=== PATIENT | male | born 1960 | race Caucasian/White ===

== ENCOUNTER 2016-06-01 10:02 | Emergency (ER) | payer MEDICARE ==
--- NOTE | 2016-06-01 10:40 | ED ---
General Adult HPI - General Chief complaint: Seizure Stated complaint: Seizure Time Seen by Provider: 06/01/16 10:05 Source: patient, RN notes reviewed Mode of arrival: wheelchair Limitations: no limitations - History of Present Illness Initial comments: 56-year-old male presents emergency Department with past medical history significant for a brain tumor in 2006 which she had surgery. Since that point in time he's had left-sided weakness and history of seizures. Patient has been on Keppra and Lamictal for a while and his physician just started him on a new medication. Patient states she's been taking it as prescribed however he recently a few weeks ago decrease the dosage because he thought he was running out of them. Today he was doing some exercising confronted the mirror at 5:30 this morning when he started having some twitching of his left arm which lasted approximately 1 minute. Patient states her to or after the twitching he had no symptoms. He denies any headache he denies any numbness C denies any new weakness. Patient denies any recent fever chills or cough. Patient denies any injury or trauma. Patient denies any chest pain palpitations difficulty breathing or shortness of breath. Patient denies any abdominal pain. Patient denies any recent nausea vomiting diarrhea. - Related Data Home Medications Medication Instructions Recorded Confirmed Fycompa 8 mg PO HS 06/01/16 06/01/16 lamoTRIgine [LaMICtal] 150 mg PO BID 06/01/16 06/01/16 levETIRAcetam [Keppra] 1,000 mg PO Q12HR 06/01/16 06/01/16 Previous Rx's Medication Instructions Recorded lamoTRIgine [LaMICtal] 200 mg PO BID #60 tab 01/05/16 Allergies Allergy/AdvReac Type Severity Reaction Status Date / Time No Known Allergies Allergy Verified 06/01/16 10:22 Review of Systems ROS Statement: Those systems with pertinent positive or pertinent negative responses have been documented in the HPI. ROS Other: All systems not noted in ROS Statement are negative. Past Medical History Past Medical History: Cancer, Chest Pain / Angina, Deep Vein Thrombosis (DVT), Hyperlipidemia, Hypertension, Memory Impairment, Pulmonary Embolus (PE), Seizure Disorder, Skin Disorder Additional Past Medical History / Comment(s): brain tumor, oligodendroglioma History of Any Multi-Drug Resistant Organisms: None Reported Additional Past Surgical History / Comment(s): brain sx for tumor removal-2014, lt hand sx, isabela filter, colonoscopy Past Anesthesia/Blood Transfusion Reactions: No Reported Reaction Additional Past Anesthesia/Blood Transfusion Reaction / Comment(s): OCC VERTIGO Past Psychological History: No Psychological Hx Reported Additional Psychological History / Comment(s): PT LIVES ALONE IN OWN HOME GETS AROUND WITH USE OF CANE.STATED GETS NO OUTSIDE SERVICES. PT IS ON DISABILTY USED TO WORK IN CONSTRUCTION. Smoking Status: Former smoker Past Alcohol Use History: Rare Additional Past Alcohol Use History / Comment(s): SMOKED FOR ABOUT 1 YEAR QUIT 31 YEARS AGO Past Drug Use History: None Reported - Past Family History Mother Family Medical History: Myocardial Infarction ([place]) Father Additional Family Medical History / Comment(s): HEART PROBLEMS NOT SURE WHAT Brother(s) Family Medical History: Cancer Additional Family Medical History / Comment(s): BRAIN TUMOR. General Exam - General Exam Comments Initial Comments: GENERAL: Patient is well-developed and well-nourished. Patient is nontoxic and well- hydrated and is in no acute distress. ENT: Neck is soft and supple. No significant lymphadenopathy is noted. Oropharynx is clear. Moist mucous membranes. Neck has full range of motion without eliciting any pain. EYES: The sclera were anicteric and conjunctiva were pink and moist. Extraocular movements were intact and pupils were equal round and reactive to light. Eyelids were unremarkable. PULMONARY: Unlabored respirations. Good breath sounds bilaterally. No audible rales rhonchi or wheezing was noted. CARDIOVASCULAR: There is a regular rate and rhythm without any murmurs gallops or rubs. ABDOMEN: Soft and nontender with normal bowel sounds. No palpable organomegaly was noted. There is no palpable pulsatile mass. SKIN: Skin is clear with no lesions or rashes and otherwise unremarkable. NEUROLOGIC: Patient is alert and oriented x3. Cranial nerves II through XII are grossly intact. Patient has weakness in the left arm and left leg which he states is no different than his baseline. Normal speech, volume and content. Symmetrical smile. MUSCULOSKELETAL: Normal extremities with adequate strength and full range of motion. No lower extremity swelling or edema. No calf tenderness. LYMPHATICS: No significant lymphadenopathy is noted PSYCHIATRIC: Normal psychiatric evaluation. Normal interpersonal interactions appears functionally intact in deals appropriately with others. No signs of depression. No signs of anxiety. Limitations: no limitations Course Vital Signs 06/01/16 06/01/16 06/01/16 10:04 11:00 11:08 Temperature 96.8 F L 97.9 F Pulse Rate 82 71 70 Respiratory 16 16 20 Rate Blood Pressure 208/97 158/78 172/85 O2 Sat by Pulse 98 99 99 Oximetry Medical Decision Making - Medical Decision Making I went back into the room to reevaluate the patient patient stated he was completely asymptomatic at this time. - Lab Data Result diagrams: 06/01/16 10:55 06/01/16 10:55 Lab Results 06/01/16 06/01/16 Range/Units 10:55 10:55 WBC 4.0 (3.8-10.6) k/uL RBC 4.74 (4.30-5.90) m/uL Hgb 15.4 (13.0-17.5) gm/dL Hct 45.6 (39.0-53.0) % MCV 96.2 (80.0-100.0) fL MCH 32.5 (25.0-35.0) pg MCHC 33.8 (31.0-37.0) g/dL RDW 13.1 (11.5-15.5) % Plt Count 139 L (150-450) k/uL Neutrophils % 70 % Lymphocytes % 17 % Monocytes % 5 % Eosinophils % 4 % Basophils % 1 % Neutrophils # 2.8 (1.3-7.7) k/uL Lymphocytes # 0.7 L (1.0-4.8) k/uL Monocytes # 0.2 (0-1.0) k/uL Eosinophils # 0.2 (0-0.7) k/uL Basophils # 0.0 (0-0.2) k/uL Sodium 144 (137-145) mmol/L Potassium 4.3 (3.5-5.1) mmol/L Chloride 107 (98-107) mmol/L Carbon Dioxide 27 (22-30) mmol/L Anion Gap 10 mmol/L BUN 19 (9-20) mg/dL Creatinine 0.92 (0.66-1.25) mg/dL Est GFR (MDRD) Af Amer >60 (>60 ml/min/1.73 sqM) Est GFR (MDRD) Non-Af >60 (>60 ml/min/1.73 sqM) Glucose 93 (74-99) mg/dL Calcium 9.6 (8.4-10.2) mg/dL Total Bilirubin 0.5 (0.2-1.3) mg/dL AST 32 (17-59) U/L ALT 39 (21-72) U/L Alkaline Phosphatase 46 (38-126) U/L Total Protein 7.1 (6.3-8.2) g/dL Albumin 4.4 (3.5-5.0) g/dL Disposition Clinical Impression: Focal seizure Disposition: HOME SELF-CARE Condition: Good Instructions: Recurrent Seizures in Adults (ED) Additional Instructions: Patient needs to take meds as prescribed. Patient is to follow-up with a neurologist. Referrals: Wili Villarreal DO [Primary Care Provider] - 1-2 days Time of Disposition: 12:01
[2016-06-01 11:02] LABS: Basophils % (A) 1 %; CH 33.1; CHCM 34.6; Eosinophils # (A) 0.2 k/uL (0-0.7); Eosinophils % (A) 4 %; HCT 45.6 % (39.0-53.0); HDW 3.04; HGB 15.4 gm/dL (13.0-17.5); Luc # (Auto) 0.11; Luc % (Auto) 3; Lymphocytes # (A) 0.7 k/uL (1.0-4.8); Lymphocytes % (A) 17 %; MCH 32.5 pg (25.0-35.0); MCHC 33.8 g/dL (31.0-37.0); MCV 96.2 fL (80.0-100.0); Mean Platelet Volume 8.4; Monocytes # (A) 0.2 k/uL (0-1.0); Monocytes % (A) 5 %; Neutrophils # (A) 2.8 k/uL (1.3-7.7); Neutrophils % (A) 70 %; RBC 4.74 m/uL (4.30-5.90); RDW 13.1 % (11.5-15.5); WBC (Perox) 4.19
[2016-06-01 11:14] LABS: ALT 39 U/L (21-72); AST 32 U/L (17-59); Alkaline Phosphatase 46 U/L (38-126); Anion Gap 10 mmol/L; Blood Urea Nitrogen 19 mg/dL (9-20); Calcium 9.6 mg/dL (8.4-10.2); Carbon Dioxide 27 mmol/L (22-30); Chloride 107 mmol/L (98-107); Glucose 93 mg/dL (74-99); Non-African American GFR(MDRD) >60 (>60 ml/min/1.73 sqM); Potassium 4.3 mmol/L (3.5-5.1); Sodium 144 mmol/L (137-145); Total Bilirubin 0.5 mg/dL (0.2-1.3); Total Protein 7.1 g/dL (6.3-8.2)
[2016-06-01 11:23] VITALS: PULSE 70
[2016-06-01 12:16] VITALS: BP 166/80; RESP 16; TEMP 97.1
[2016-06-02 07:29] LABS: Lamotrigine (Lamictal) 9.4 ug/mL (2.0-15.0)
[2016-06-02 08:15] LABS: Levetiracetam (Keppra) 26.6 ug/mL (3.0-60.0)
== END 2016-06-01 12:26 | disposition home or self-care (01) ==
LOC: EC 10:02
DX: G40.109 Localization-related (focal) (partial) symptomatic epilepsy and epileptic syndromes with simple partial seizures, not intractable, without status epilepticus (principal); Z86.011 Personal history of benign neoplasm of the brain; Z87.891 Personal history of nicotine dependence; Z79.899 Other long term (current) drug therapy
CPT/HCPCS: 36415; 80053; 80175; 80177; 85025; 99284

== ENCOUNTER 2016-06-28 10:32 | Emergency (ER) | payer MEDICARE ==
[2016-06-28] MEDS ORDERED: SODIUM CHLORIDE 0.9% 1,000 ML IV ONE (10:41)
[2016-06-28 10:49] VITALS: RESP 18
[2016-06-28 11:46] LABS: Basophils % (A) 0 %; CH 33.4; CHCM 35.9; Eosinophils # (A) 0.2 k/uL (0-0.7); Eosinophils % (A) 3 %; HCT 47.1 % (39.0-53.0); HDW 3.15; HGB 16.7 gm/dL (13.0-17.5); Luc # (Auto) 0.15; Luc % (Auto) 3; Lymphocytes % (A) 18 %; MCH 33.2 pg (25.0-35.0); MCHC 35.5 g/dL (31.0-37.0); MCV 93.5 fL (80.0-100.0); Mean Platelet Volume 7.2; Monocytes # (A) 0.4 k/uL (0-1.0); Monocytes % (A) 7 %; Neutrophils # (A) 3.9 k/uL (1.3-7.7); Neutrophils % (A) 69 %; RBC 5.04 m/uL (4.30-5.90); RDW 12.9 % (11.5-15.5); WBC 5.6 k/uL (3.8-10.6); WBC (Perox) 5.76
[2016-06-28 12:02] LABS: ALT 37 U/L (21-72); AST 44 U/L (17-59); Alkaline Phosphatase 60 U/L (38-126); Anion Gap 12 mmol/L; Blood Urea Nitrogen 23 mg/dL (9-20); Calcium 9.6 mg/dL (8.4-10.2); Carbon Dioxide 29 mmol/L (22-30); Chloride 102 mmol/L (98-107); Glucose 98 mg/dL (74-99); Magnesium 2.1 mg/dL (1.6-2.3); Non-African American GFR(MDRD) >60 (>60 ml/min/1.73 sqM); Sodium 143 mmol/L (137-145); Total Bilirubin 0.7 mg/dL (0.2-1.3); Total Protein 7.7 g/dL (6.3-8.2)
[2016-06-28 12:08] LABS: Creatine Kinase 347 U/L (55-170)
--- NOTE | 2016-06-28 12:15 | CT ---
EXAMINATION TYPE: CT brain wo con DATE OF EXAM: 06/28/2016 11:51 AM COMPARISON: 01/01/2016 HISTORY: 56-year-old male complains of headache, dizziness, and fall with blow to head today. The pat ient has history of oligodendroglioma. TECHNIQUE: Examination was done in axial plane without intravenous contrast. Coronal and sagittal r econstructions performed. CT DLP: 1106 mGycm Automated exposure control for dose reduction was used. FINDINGS: Redemonstrated postsurgical changes with right-sided craniectomy with overlying metallic flap. Underl chai small resection cavity extensive white matter hypodensities throughout the right frontal lobe re latively similar to prior exam with associated calcifications. However, some of the calcifications an teriorly near the midline, axial image 34 appear to be increased from prior exam. No evidence for acute intracranial hemorrhage. No hydrocephalus, midline shift, or herniation. No ef facement of basal subarachnoid cisterns. Pearson-white matter differentiation is maintained. Paranasal sinuses and mastoid air cells well pneumatized. IMPRESSION: 1. Right-sided craniotomy with underlying right frontal lobe white matter hypodensities, calcificatio ns, and small resection cavity; overall findings are relatively similar to 01/01/2016 though there ar e slightly increasing anterior calcifications. Continued follow-up as indicated for patient's known g lioma. 2. No acute intracranial abnormality seen.
--- NOTE | 2016-06-28 12:16 | ED ---
Dizziness HPI - General Chief Complaint: Dizziness Stated Complaint: Weakness Time Seen by Provider: 06/28/16 10:32 Source: patient, EMS, RN notes reviewed Mode of arrival: EMS Limitations: no limitations - History of Present Illness Initial Comments: This is a 56-year-old male with a history of a CVA with left residual weakness who states he was at a local fast food restaurant this morning when he try to get up he felt lightheaded dizzy and fell. He did not actually lose consciousness. He does state that he felt weak lightheaded he denies any chest pain or palpitations no new weakness to his left side he's had no recent fevers chills nausea vomiting sweats or other symptoms. He currently denies any pain. He was brought here by EMS for evaluation. MD Complaint: dizziness, lightheadedness - Related Data Home Medications Medication Instructions Recorded Confirmed Fycompa 6 mg PO HS 06/01/16 06/28/16 levETIRAcetam [Keppra] 1,000 mg PO Q12HR 06/01/16 06/28/16 Atorvastatin [Lipitor] 80 mg PO DAILY 06/28/16 06/28/16 Cholecalciferol [Vitamin D3] 1,000 unit PO DAILY 06/28/16 06/28/16 Ubidecarenone [Co Q-10] 100 mg PO DAILY 06/28/16 06/28/16 lamoTRIgine [Lamotrigine] 200 mg PO BID 06/28/16 06/28/16 Allergies Allergy/AdvReac Type Severity Reaction Status Date / Time No Known Allergies Allergy Verified 06/16/16 10:05 Review of Systems ROS Statement: Those systems with pertinent positive or pertinent negative responses have been documented in the HPI. ROS Other: All systems not noted in ROS Statement are negative. Past Medical History Past Medical History: Cancer, Chest Pain / Angina, Deep Vein Thrombosis (DVT), Hyperlipidemia, Hypertension, Memory Impairment, Pulmonary Embolus (PE), Seizure Disorder, Skin Disorder Additional Past Medical History / Comment(s): brain tumor, oligodendroglioma History of Any Multi-Drug Resistant Organisms: None Reported Additional Past Surgical History / Comment(s): brain sx for tumor removal-2014, lt hand sx, isabela filter, colonoscopy Past Anesthesia/Blood Transfusion Reactions: No Reported Reaction Additional Past Anesthesia/Blood Transfusion Reaction / Comment(s): OCC VERTIGO Past Psychological History: No Psychological Hx Reported Additional Psychological History / Comment(s): PT LIVES ALONE IN OWN HOME GETS AROUND WITH USE OF CANE.STATED GETS NO OUTSIDE SERVICES. PT IS ON DISABILTY USED TO WORK IN CONSTRUCTION. Smoking Status: Former smoker Past Alcohol Use History: Rare Additional Past Alcohol Use History / Comment(s): SMOKED FOR ABOUT 1 YEAR QUIT 31 YEARS AGO Past Drug Use History: None Reported - Past Family History Mother Family Medical History: Myocardial Infarction ([place]) Father Additional Family Medical History / Comment(s): HEART PROBLEMS NOT SURE WHAT Brother(s) Family Medical History: Cancer Additional Family Medical History / Comment(s): BRAIN TUMOR. General Exam - General Exam Comments Initial Comments: This is a well-developed well-nourished awake oriented history male Limitations: no limitations General appearance: alert, in no apparent distress Head exam: Present: atraumatic, normocephalic, normal inspection Eye exam: Present: normal appearance, PERRL, EOMI. Absent: scleral icterus, conjunctival injection, periorbital swelling ENT exam: Present: normal exam, mucous membranes moist Neck exam: Present: normal inspection. Absent: tenderness, meningismus, lymphadenopathy Respiratory exam: Present: normal lung sounds bilaterally. Absent: respiratory distress, wheezes, rales, rhonchi, stridor Cardiovascular Exam: Present: regular rate, normal rhythm, normal heart sounds. Absent: systolic murmur, diastolic murmur, rubs, gallop, clicks GI/Abdominal exam: Present: soft, normal bowel sounds. Absent: distended, tenderness, guarding, rebound, rigid Extremities exam: Present: normal inspection, normal capillary refill, other ( Left sided hemiparesis). Absent: full ROM, tenderness, pedal edema, joint swelling, calf tenderness Back exam: Present: normal inspection Neurological exam: Present: alert, oriented X3, CN II-XII intact, motor sensory deficit (Stated above this is not new per the patient) Psychiatric exam: Present: normal affect, normal mood Skin exam: Present: warm, dry, intact, normal color. 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[employer] ] Respiratory 18 Rate Blood Pressure 166/85 Blood Pressure 144/79 181/77 [Right Arm] O2 Sat by Pulse 98 Oximetry 06/28/16 06/28/16 06/28/16 11:28 12:39 14:10 Temperature 97.1 F L 97 F L Pulse Rate 63 61 Pulse Rate [ 72 [employer]ruiter Account Manager ] Respiratory 18 18 Rate Blood Pressure 153/79 158/84 Blood Pressure 171/78 [Right Arm] O2 Sat by Pulse 100 99 Oximetry EKG Findings - EKG Results: EKG: interpreted by ERMD, sinus rhythm, normal axis, normal QRS, normal ST/T, no acute changes (Sinus rhythm rate 65 NV interval 164 QRS duration 100 QT/QTC of 434/[address]-T wave changes.) Medical Decision Making - Medical Decision Making The patient showing much improved at this time I did have a long discussion with him and his brother who was present patient does demonstrate hematuria he does have a history kidney stones in the past. He has been on Coumadin in the past but he was taken off about a month ago. He currently is asymptomatic I did go over a differential diagnosis with him about what the potential of hematuria could be he will follow-up with his family doctor for reevaluation of this. - Lab Data Result diagrams: 06/28/16 11:35 06/28/16 11:35 Lab Results 06/28/16 06/28/16 06/28/16 Range/Units 11:35 11:35 11:35 WBC 5.6 (3.8-10.6) k/uL RBC 5.04 (4.30-5.90) m/uL Hgb 16.7 (13.0-17.5) gm/dL Hct 47.1 (39.0-53.0) % MCV 93.5 (80.0-100.0) fL MCH 33.2 (25.0-35.0) pg MCHC 35.5 (31.0-37.0) g/dL RDW 12.9 (11.5-15.5) % Plt Count 153 (150-450) k/uL Neutrophils % 69 % Lymphocytes % 18 % Monocytes % 7 % Eosinophils % 3 % Basophils % 0 % Neutrophils # 3.9 (1.3-7.7) k/uL Lymphocytes # 1.0 (1.0-4.8) k/uL Monocytes # 0.4 (0-1.0) k/uL Eosinophils # 0.2 (0-0.7) k/uL Basophils # 0.0 (0-0.2) k/uL Sodium 143 (137-145) mmol/L Potassium 4.0 (3.5-5.1) mmol/L Chloride 102 (98-107) mmol/L Carbon Dioxide 29 (22-30) mmol/L Anion Gap 12 mmol/L BUN 23 H (9-20) mg/dL Creatinine 1.04 (0.66-1.25) mg/dL Est GFR (MDRD) Af Amer >60 (>60 ml/min/1.73 sqM) Est GFR (MDRD) Non-Af >60 (>60 ml/min/1.73 sqM) Glucose 98 (74-99) mg/dL Calcium 9.6 (8.4-10.2) mg/dL Magnesium 2.1 (1.6-2.3) mg/dL Total Bilirubin 0.7 (0.2-1.3) mg/dL AST 44 (17-59) U/L ALT 37 (21-72) U/L Alkaline Phosphatase 60 (38-126) U/L Total Creatine Kinase 347 H (55-170) U/L CK-MB (CK-2) 3.5 H* (0.0-2.4) ng/mL CK-MB (CK-2) Rel Index 1.0 Troponin I <0.012 (0.000-0.034) ng/mL Total Protein 7.7 (6.3-8.2) g/dL Albumin 4.6 (3.5-5.0) g/dL Urine Color Urine Appearance (Clear) Urine pH (5.0-8.0) Ur Specific Ola (1.001-1.035) Urine Protein (Negative) Urine Glucose (UA) (Negative) Urine Ketones (Negative) Urine Blood (Negative) Urine Nitrite (Negative) Urine Bilirubin (Negative) Urine Urobilinogen (<2.0) mg/dL Ur Leukocyte Esterase (Negative) Urine RBC (0-5) /hpf Urine WBC (0-5) /hpf Hyaline Casts (0-2) /lpf Urine Mucus (None) /hpf 06/28/16 Range/Units 12:13 WBC (3.8-10.6) k/uL RBC (4.30-5.90) m/uL Hgb (13.0-17.5) gm/dL Hct (39.0-53.0) % MCV (80.0-100.0) fL MCH (25.0-35.0) pg MCHC (31.0-37.0) g/dL RDW (11.5-15.5) % Plt Count (150-450) k/uL Neutrophils % % Lymphocytes % % Monocytes % % Eosinophils % % Basophils % % Neutrophils # (1.3-7.7) k/uL Lymphocytes # (1.0-4.8) k/uL Monocytes # (0-1.0) k/uL Eosinophils # (0-0.7) k/uL Basophils # (0-0.2) k/uL Sodium (137-145) mmol/L Potassium (3.5-5.1) mmol/L Chloride (98-107) mmol/L Carbon Dioxide (22-30) mmol/L Anion Gap mmol/L BUN (9-20) mg/dL Creatinine (0.66-1.25) mg/dL Est GFR (MDRD) Af Amer (>60 ml/min/1.73 sqM) Est GFR (MDRD) Non-Af (>60 ml/min/1.73 sqM) Glucose (74-99) mg/dL Calcium (8.4-10.2) mg/dL Magnesium (1.6-2.3) mg/dL Total Bilirubin (0.2-1.3) mg/dL AST (17-59) U/L ALT (21-72) U/L Alkaline Phosphatase (38-126) U/L Total Creatine Kinase (55-170) U/L CK-MB (CK-2) (0.0-2.4) ng/mL CK-MB (CK-2) Rel Index Troponin I (0.000-0.034) ng/mL Total Protein (6.3-8.2) g/dL Albumin (3.5-5.0) g/dL Urine Color Yellow Urine Appearance Clear (Clear) Urine pH 6.0 (5.0-8.0) Ur Specific Ola 1.021 (1.001-1.035) Urine Protein Trace H (Negative) Urine Glucose (UA) Negative (Negative) Urine Ketones Negative (Negative) Urine Blood Moderate H (Negative) Urine Nitrite Negative (Negative) Urine Bilirubin Negative (Negative) Urine Urobilinogen <2.0 (<2.0) mg/dL Ur Leukocyte Esterase Negative (Negative) Urine RBC >182 H (0-5) /hpf Urine WBC 2 (0-5) /hpf Hyaline Casts 1 (0-2) /lpf Urine Mucus Occasional H (None) /hpf - Radiology Data Radiology results: report reviewed (I did review the imaging and reports no acute findings.), image reviewed Disposition Clinical Impression: Fall, Orthostatic hypotension, Dehydration, Hematuria Disposition: HOME SELF-CARE Condition: Good Instructions: Dizziness (ED), Dehydration (ED), Hematuria (ED)
[2016-06-28 12:22] LABS: Troponin I <0.012 ng/mL (0.000-0.034)
[2016-06-28 12:23] LABS: Appearance,Urine Clear (Clear); Bilirubin,Urine Negative (Negative); Glucose,Urine (UA) Negative (Negative); Ketones,Urine Negative (Negative); Leukocyte Esterase,Urine Negative (Negative); Mucus,Urine Occasional /hpf; Nitrite,Urine Negative (Negative); Particle Count 3583; Protein,Urine Trace (Negative); RBC,Urine >182 /hpf (0-5); Specific Gravity,Urine 1.021 (1.001-1.035); UA Billing (MACRO vs. MICRO) MICRO; Urobilinogen,Urine <2.0 mg/dL (<2.0); WBC,Urine 2 /hpf (0-5)
[2016-06-28 12:30] LABS: Creatine Kinase MB 3.5 ng/mL (0.0-2.4)
--- NOTE | 2016-06-28 14:13 | XR ---
EXAMINATION TYPE: XR chest 2V DATE OF EXAM: 06/28/2016 2:06 PM COMPARISON: 10/18/2014 HISTORY: 56-year-old male with cough TECHNIQUE: AP and lateral views FINDINGS: The cardiomediastinal silhouette, aorta, and pulmonary vasculature are within normal limits. Stable m ild interstitial prominence, likely chronic changes, without consolidation, pneumothorax, or pleural effusion. IMPRESSION: No acute cardiopulmonary process.
--- NOTE | 2016-06-28 14:14 | XR ---
EXAMINATION TYPE: XR abdomen 1V DATE OF EXAM: 06/28/2016 2:06 PM CLINICAL DATA: 56-year-old male with pain after fall today, [facility] COMPARISON: 08/26/2010 FINDINGS: Lung bases are clear. An IVC filter is present. No evidence for free intraperitoneal air. No dilated small bowel or air-fluid levels. Scattered air and stool seen throughout the colon extendi ng distally into the rectum. Mild stool burden. No suspicious calcifications identified. IMPRESSION: No evidence of bowel obstruction or free intraperitoneal air.
[2016-06-28 15:36] VITALS: BP 158/92; PULSE 59; TEMP 96.9
== END 2016-06-28 15:32 | disposition home or self-care (01) ==
LOC: EC 10:32
DX: I95.1 Orthostatic hypotension (principal); E86.0 Dehydration; R31.9 Hematuria, unspecified; I69.952 Hemiplegia and hemiparesis following unspecified cerebrovascular disease affecting left dominant side; E78.5 Hyperlipidemia, unspecified; I10 Essential (primary) hypertension; G40.909 Epilepsy, unspecified, not intractable, without status epilepticus; Z85.841 Personal history of malignant neoplasm of brain; Z86.711 Personal history of pulmonary embolism; Z86.718 Personal history of other venous thrombosis and embolism; Z79.899 Other long term (current) drug therapy; Z87.891 Personal history of nicotine dependence; W18.30XA Fall on same level, unspecified, initial encounter; Y92.511 Restaurant or cafe as the place of occurrence of the external cause
CPT/HCPCS: 36415; 70450; 71020; 74000; 80053; 81001; 82550; 82553; 83735; 84484; 85025; 93005; 96360; 96361; 99285

== ENCOUNTER → 2016-08-12 | Outpatient (CLI) | payer MEDICARE ==
[2016-08-12 16:44] LABS: ALT 34 U/L (21-72); AST 35 U/L (17-59); Alkaline Phosphatase 47 U/L (38-126); Anion Gap 13 mmol/L; Blood Urea Nitrogen 32 mg/dL (9-20); Calcium 9.9 mg/dL (8.4-10.2); Carbon Dioxide 30 mmol/L (22-30); Chloride 100 mmol/L (98-107); Glucose 106 mg/dL (74-99); Non-African American GFR(MDRD) >60 (>60 ml/min/1.73 sqM); Potassium 3.8 mmol/L (3.5-5.1); Sodium 143 mmol/L (137-145); Total Bilirubin 1.2 mg/dL (0.2-1.3); Total Protein 7.6 g/dL (6.3-8.2)
--- NOTE | 2016-08-12 17:43 | MR ---
EXAMINATION TYPE: MR brain wo/w con DATE OF EXAM: 08/12/2016 COMPARISON: NONE HISTORY: Brain Ca / Progressive Weakness CONTRAST: Standard multiplanar, multisequence MRI departmental protocol utilizing 17 mL intravenous MultiHance gadolinium contrast. FINDINGS: There is a right frontoparietal craniotomy defect. There is a large area of tran and white matter edema in the right frontal and parietal lobe that measures approximately 10 x 5 cm. There is a 3.5 x 3 cm area of mixed signal adjacent to the falx in the right parietal lobe. Some of this is dec reased signal related to calcification and hemosiderin there is a 3 cm area of irregular pathologic p atchy nodular enhancement at the anterior aspect of the parietal lobe mass consistent with residual t umor. There is an 18 mm area of fluid signal at the posterior aspect of the mass. There is no significant midline shift. I see no significant effacement of the right lateral ventricle . The patchy nodular enhancement extends to the right lateral ventricle. IMPRESSION: Postsurgical changes with a large area of cerebral edema in the right frontal parietal lobe and evide nce of 3 cm residual tumor enhancement. No significant mass effect. I do not see an increase compared to the old CT scan of 06/28/2016. I do not have a previous MR scan to compare.
== END | disposition home or self-care (01) ==
LOC: RADMRIMAIN 15:48
PROVIDERS: ATTEND Internal Medicine Hematology & Oncology
DX: G93.6 Cerebral edema (principal); C71.9 Malignant neoplasm of brain, unspecified; Z98.890 Other specified postprocedural states
CPT/HCPCS: 80053; 70553; A9577

== ENCOUNTER 2016-08-14 20:07 | Emergency (ER) | payer MEDICARE ==
[2016-08-14 20:15] VITALS: TEMP 97.4
[2016-08-14 20:59] LABS: CH 34.1; HCT 43.1 % (39.0-53.0); HDW 2.86; HGB 15.2 gm/dL (13.0-17.5); MCH 33.4 pg (25.0-35.0); MCHC 35.1 g/dL (31.0-37.0); Mean Platelet Volume 7.4; RBC 4.54 m/uL (4.30-5.90); RDW 13.6 % (11.5-15.5); WBC 6.3 k/uL (3.8-10.6)
--- NOTE | 2016-08-14 21:14 | CT ---
EXAMINATION TYPE: CT brain wo con DATE OF EXAM: 08/14/2016 HISTORY: Possible stroke/seizure. CT DLP: 1045.1 mGycm. Automated Exposure Control for Dose Reduction was Utilized. TECHNIQUE: CT scan of the head is performed without contrast. COMPARISON: CT brain June 28, 2016. MRI brain August 12, 2016. FINDINGS: There is right parietal craniectomy change similar to recent MRI. There is heterogeneous ca lcific mass with surrounding edema redemonstrated similar to MRI. I cannot explain why prior CT shows findings right frontal region. No midline shift is seen. No acute intracranial hemorrhage is noted. Ventricle size is stable. The visualized paranasal sinuses are clear. Globes are intact bilaterally. IMPRESSION: No acute intracranial hemorrhage or midline shift. There is right sided surgical change with persistent irregular calcified mass and local mass effect/edema redemonstrated. No significant change from most recent MRI 2 days earlier.
[2016-08-14 21:15] LABS: ALT 38 U/L (21-72); AST 29 U/L (17-59); Alkaline Phosphatase 51 U/L (38-126); Anion Gap 13 mmol/L; Blood Urea Nitrogen 31 mg/dL (9-20); Calcium 10.3 mg/dL (8.4-10.2); Carbon Dioxide 26 mmol/L (22-30); Chloride 105 mmol/L (98-107); Glucose 122 mg/dL (74-99); Non-African American GFR(MDRD) >60 (>60 ml/min/1.73 sqM); Potassium 3.8 mmol/L (3.5-5.1); Sodium 144 mmol/L (137-145); Total Bilirubin 0.6 mg/dL (0.2-1.3); Total Protein 7.3 g/dL (6.3-8.2)
[2016-08-14 21:23] LABS: Creatine Kinase 89 U/L (55-170)
[2016-08-14 21:36] LABS: Creatine Kinase MB 1.9 ng/mL (0.0-2.4); Troponin I <0.012 ng/mL (0.000-0.034)
[2016-08-14 21:40] VITALS: RESP 17
[2016-08-14] MEDS ORDERED: SODIUM CHLORIDE 0.9% 500 ML IV STA (21:41)
--- NOTE | 2016-08-14 21:55 | ED ---
General Adult HPI - General Chief complaint: Neuro Symptoms/Deficit Stated complaint: Poss Stroke/Seizure Time Seen by Provider: 08/14/16 21:00 Source: patient, family, RN notes reviewed Mode of arrival: wheelchair Limitations: no limitations - History of Present Illness Initial comments: This is a 56-year-old male who presents to the emergency department complaining that he had a seizure today that lasted about a minute it was just his left arm twitching. Patient states she was not unconscious at this time. Patient states this has happened many times in the past. Patient states after that stopped he felt as though the left side of his face was drooping. Patient states she never checked out in the mirror he just felt as though it was drooping. Patient states that feeling lasted about 30 seconds and then went away. Patient currently states he has no complaints. Patient states he has residual left-sided weakness secondary to surgery of a brain tumor. Patient denies any new weakness currently patient denies any new numbness currently. Patient denies a headache. Patient denies any recent fever chills or cough. Patient denies any recent trauma or injury. Patient denies any chest pain or difficulty breathing. Patient denies any abdominal pain patient denies any recent nausea or vomiting. - Related Data Home Medications Medication Instructions Recorded Confirmed Fycompa 6 mg PO HS 06/01/16 08/11/16 levETIRAcetam [Keppra] 1,000 mg PO Q12HR 06/01/16 08/11/16 Atorvastatin [Lipitor] 80 mg PO DAILY 06/28/16 08/11/16 Cholecalciferol [Vitamin D3] 1,000 unit PO DAILY 06/28/16 08/11/16 Ubidecarenone [Co Q-10] 100 mg PO DAILY 06/28/16 08/11/16 lamoTRIgine [Lamotrigine] 200 mg PO BID 06/28/16 08/11/16 Allergies Allergy/AdvReac Type Severity Reaction Status Date / Time No Known Allergies Allergy Verified 08/14/16 20:15 Review of Systems ROS Statement: Those systems with pertinent positive or pertinent negative responses have been documented in the HPI. ROS Other: All systems not noted in ROS Statement are negative. Past Medical History Past Medical History: Cancer, Chest Pain / Angina, Deep Vein Thrombosis (DVT), Hyperlipidemia, Hypertension, Memory Impairment, Pulmonary Embolus (PE), Seizure Disorder, Skin Disorder Additional Past Medical History / Comment(s): brain tumor, oligodendroglioma History of Any Multi-Drug Resistant Organisms: None Reported Additional Past Surgical History / Comment(s): brain sx for tumor removal-2013, lt hand sx, isabela filter, colonoscopy Past Anesthesia/Blood Transfusion Reactions: No Reported Reaction Additional Past Anesthesia/Blood Transfusion Reaction / Comment(s): OCC VERTIGO Past Psychological History: No Psychological Hx Reported Additional Psychological History / Comment(s): PT LIVES ALONE IN OWN HOME GETS AROUND WITH USE OF CANE.STATED GETS NO OUTSIDE SERVICES. PT IS ON DISABILTY USED TO WORK IN CONSTRUCTION. Smoking Status: Never smoker Past Alcohol Use History: None Reported, Occasional Additional Past Alcohol Use History / Comment(s): SMOKED FOR ABOUT 1 YEAR QUIT 31 YEARS AGO Past Drug Use History: None Reported - Past Family History Mother Family Medical History: Myocardial Infarction ([place]) Father Additional Family Medical History / Comment(s): HEART PROBLEMS NOT SURE WHAT Brother(s) Family Medical History: Cancer Additional Family Medical History / Comment(s): BRAIN TUMOR. General Exam - General Exam Comments Initial Comments: GENERAL: Patient is well-developed and well-nourished. Patient is nontoxic and well- hydrated and is in no acute distress. ENT: Neck is soft and supple. No significant lymphadenopathy is noted. Oropharynx is clear. Moist mucous membranes. Neck has full range of motion without eliciting any pain. EYES: The sclera were anicteric and conjunctiva were pink and moist. Extraocular movements were intact and pupils were equal round and reactive to light. Eyelids were unremarkable. PULMONARY: Unlabored respirations. Good breath sounds bilaterally. No audible rales rhonchi or wheezing was noted. CARDIOVASCULAR: There is a regular rate and rhythm without any murmurs gallops or rubs. ABDOMEN: Soft and nontender with normal bowel sounds. SKIN: Skin is clear with no lesions or rashes and otherwise unremarkable. NEUROLOGIC: Patient is alert and oriented x3. Cranial nerves II through XII are grossly intact. Motor and sensory are also intact. Patient's speech is somewhat stuttered at times he again states this is normal. Symmetrical smile. MUSCULOSKELETAL: Patient has 3-5 lastex operator on the left compared to the right and 4-5 plantar and dorsiflexion compared to the right. Patient states this is not new. No lower extremity swelling or edema. No calf tenderness. LYMPHATICS: No significant lymphadenopathy is noted PSYCHIATRIC: Normal psychiatric evaluation. Normal interpersonal interactions appears functionally intact in deals appropriately with others. No signs of depression. No signs of anxiety. Limitations: no limitations Course Vital Signs 08/14/16 08/14/16 08/14/16 20:12 21:39 22:06 Temperature 97.4 F L Pulse Rate 66 60 64 Respiratory 18 17 17 Rate Blood Pressure 166/79 144/67 157/74 O2 Sat by Pulse 94 L 95 95 Oximetry Medical Decision Making - Medical Decision Making CT scan shows no acute abnormality. CXR shows no acute abnormality. Pt. doesn' t want to stay inpatient he will follow up with his neurologist. - Lab Data Result diagrams: 08/14/16 20:14 08/14/16 20:14 Lab Results 08/14/16 08/14/16 08/14/16 Range/Units 20:14 20:14 20:14 WBC 6.3 (3.8-10.6) k/uL RBC 4.54 (4.30-5.90) m/uL Hgb 15.2 (13.0-17.5) gm/dL Hct 43.1 (39.0-53.0) % MCV 95.0 (80.0-100.0) fL MCH 33.4 (25.0-35.0) pg MCHC 35.1 (31.0-37.0) g/dL RDW 13.6 (11.5-15.5) % Plt Count 191 (150-450) k/uL PT (9.0-12.0) sec INR (<1.1) APTT (22.0-30.0) sec Sodium 144 (137-145) mmol/L Potassium 3.8 (3.5-5.1) mmol/L Chloride 105 (98-107) mmol/L Carbon Dioxide 26 (22-30) mmol/L Anion Gap 13 mmol/L BUN 31 H (9-20) mg/dL Creatinine 1.00 (0.66-1.25) mg/dL Est GFR (MDRD) Af Amer >60 (>60 ml/min/1.73 sqM) Est GFR (MDRD) Non-Af >60 (>60 ml/min/1.73 sqM) Glucose 122 H (74-99) mg/dL Calcium 10.3 H (8.4-10.2) mg/dL Total Bilirubin 0.6 (0.2-1.3) mg/dL AST 29 (17-59) U/L ALT 38 (21-72) U/L Alkaline Phosphatase 51 (38-126) U/L Total Creatine Kinase 89 (55-170) U/L CK-MB (CK-2) 1.9 (0.0-2.4) ng/mL CK-MB (CK-2) Rel Index 2.1 Troponin I <0.012 (0.000-0.034) ng/mL Total Protein 7.3 (6.3-8.2) g/dL Albumin 4.7 (3.5-5.0) g/dL 08/14/16 Range/Units 20:44 WBC (3.8-10.6) k/uL RBC (4.30-5.90) m/uL Hgb (13.0-17.5) gm/dL Hct (39.0-53.0) % MCV (80.0-100.0) fL MCH (25.0-35.0) pg MCHC (31.0-37.0) g/dL RDW (11.5-15.5) % Plt Count (150-450) k/uL PT 10.7 (9.0-12.0) sec INR 1.1 (<1.1) APTT 20.7 L (22.0-30.0) sec Sodium (137-145) mmol/L Potassium (3.5-5.1) mmol/L Chloride (98-107) mmol/L Carbon Dioxide (22-30) mmol/L Anion Gap mmol/L BUN (9-20) mg/dL Creatinine (0.66-1.25) mg/dL Est GFR (MDRD) Af Amer (>60 ml/min/1.73 sqM) Est GFR (MDRD) Non-Af (>60 ml/min/1.73 sqM) Glucose (74-99) mg/dL Calcium (8.4-10.2) mg/dL Total Bilirubin (0.2-1.3) mg/dL AST (17-59) U/L ALT (21-72) U/L Alkaline Phosphatase (38-126) U/L Total Creatine Kinase (55-170) U/L CK-MB (CK-2) (0.0-2.4) ng/mL CK-MB (CK-2) Rel Index Troponin I (0.000-0.034) ng/mL Total Protein (6.3-8.2) g/dL Albumin (3.5-5.0) g/dL Disposition Clinical Impression: Simple partial seizure disorder Disposition: HOME SELF-CARE Condition: Good Instructions: Recurrent Seizures in Adults (ED) Referrals: Wili Villarreal DO [Primary Care Provider] - 1-2 days Time of Disposition: 23:26
[2016-08-14 22:01] LABS: INR 1.1 (<1.1); Prothrombin Time 10.7 sec (9.0-12.0)
[2016-08-14 22:10] LABS: Partial Thromboplastin Time 20.7 sec (22.0-30.0)
--- NOTE | 2016-08-14 23:20 | XR ---
EXAM: XR Chest, 2 Views CLINICAL HISTORY: Reason: altered mental status TECHNIQUE: Frontal and lateral views of the chest. COMPARISON: CXR 06/28/16 FINDINGS: Lungs: Unremarkable. No consolidation. Pleural space: Unremarkable. No pneumothorax. Heart: Unremarkable. No cardiomegaly. Mediastinum: Unremarkable. Bones/joints: Multilevel degenerative changes of the spine. IMPRESSION: No acute findings.
[2016-08-14 23:41] VITALS: BP 141/70; PULSE 61
[2016-08-16 14:36] LABS: Lamotrigine (Lamictal) 10.7 ug/mL (2.0-15.0)
[2016-08-16 14:45] LABS: Levetiracetam (Keppra) 34.6 ug/mL (3.0-60.0)
== END 2016-08-14 23:42 | disposition home or self-care (01) ==
LOC: EC 20:07
DX: G40.109 Localization-related (focal) (partial) symptomatic epilepsy and epileptic syndromes with simple partial seizures, not intractable, without status epilepticus (principal); E78.5 Hyperlipidemia, unspecified; I10 Essential (primary) hypertension; Z86.711 Personal history of pulmonary embolism; Z86.718 Personal history of other venous thrombosis and embolism; R25.3 Fasciculation; M62.81 Muscle weakness (generalized); R29.810 Facial weakness; Z86.011 Personal history of benign neoplasm of the brain; Z87.891 Personal history of nicotine dependence; Z79.899 Other long term (current) drug therapy
CPT/HCPCS: 36415; 70450; 71020; 80053; 80175; 80177; 82550; 82553; 84484; 85027; 85610; 85730; 96360; 96361; 99284

== ENCOUNTER → 2016-08-17 | Outpatient (CLI) | payer MEDICARE ==
--- NOTE | 2016-08-18 08:36 | XR ---
EXAMINATION TYPE: XR chest 2V DATE OF EXAM: 08/17/2016 COMPARISON: 08/14/2016 TECHNIQUE: PA and lateral views submitted. HISTORY: Weakness FINDINGS: The lungs are clear and there is no pneumothorax, pleural effusion, or focal pneumonia. Arthropathy of the shoulders. Hypertrophic and degenerative change of the spine. IMPRESSION: 1. No acute process.
== END | disposition home or self-care (01) ==
LOC: RADXRYALE 16:37
PROVIDERS: ATTEND Physician Assistant Medical
DX: M62.81 Muscle weakness (generalized) (principal); G40.909 Epilepsy, unspecified, not intractable, without status epilepticus; Z85.841 Personal history of malignant neoplasm of brain
CPT/HCPCS: 71020

== ENCOUNTER 2016-09-21 16:59 | Inpatient (IN) | payer MEDICARE ==
[2016-09-21] MEDS ORDERED: SODIUM CHLORIDE 0.9% 1,000 ML IV STA (17:20)
--- NOTE | 2016-09-21 17:22 | ED ---
Weakness HPI - General Stated complaint: weakness Time Seen by Provider: 09/21/16 17:02 Source: EMS, RN notes reviewed, old records reviewed Mode of arrival: EMS Limitations: no limitations - History of Present Illness Initial comments: This is a 56-year-old male presenting to the emergency Department chief complaint of left lower extremity weakness for the past month. Apparently patient reports that he lost function of his bowel and bladder earlier today. He reports that the first time this happened. He does have a history of a brain tumor and chronic left-sided weakness afterwards. Patient reports that he has no other associated symptoms of any chest pain or shortness of breath or headache. He reports that he has diminished sensation over the left lower extremity. Patient denies any recent falls or trauma. He denies any specific back pain. According to EMS report patient's home caregiver states that he is not able to take care of himself anymore and that the patient needs to be admitted, apparently he has any thing else in several days. Upon review of systems patient reports that he did have one episode of losing control of his bowels this morning. Patient denies any recent fever, chills, shortness of breath, chest pain, back pain, abdominal pain, nausea vomiting, numbness or tingling, dysuria or hematuria, headaches or visual changes, or any other current symptoms - Related Data Home Medications Medication Instructions Recorded Confirmed Fycompa 8 mg PO HS 06/01/16 09/21/16 Atorvastatin [Lipitor] 80 mg PO DAILY 06/28/16 09/21/16 Cholecalciferol [Vitamin D3] 1,000 unit PO DAILY 06/28/16 09/21/16 Ubidecarenone [Co Q-10] 100 mg PO DAILY 06/28/16 09/21/16 lamoTRIgine [Lamotrigine] 200 mg PO BID 06/28/16 09/21/16 Aspirin EC [Ecotrin Low Dose] 81 mg PO DAILY 09/21/16 09/21/16 Atenolol/Chlorthalidone 1 tab PO DAILY 09/21/16 09/21/16 [Atenolol-Chlorthalidone 50-25] Dexamethasone 4 mg PO Q6H 09/21/16 09/21/16 Fenofibrate [Lofibra] 160 mg PO DAILY 09/21/16 09/21/16 Metoprolol/Hydrochlorothiazide 1 tab PO DAILY 09/21/16 09/21/16 [Lopressor Hct 50-25 mg Tab] Multivitamins, Thera [Multivitamin 1 tab PO DAILY 09/21/16 09/21/16 (formulary)] Niacin 250 mg PO DAILY 09/21/16 09/21/16 [place]-3 Fatty Acids/Fish Oil [Fish 1 cap PO DAILY 09/21/16 09/21/16 Oil 1,000 mg Softgel] Ondansetron [Zofran] 4 mg PO Q6H PRN 09/21/16 09/21/16 levETIRAcetam [Keppra] 750 mg PO BID 09/21/16 09/21/16 Allergies Allergy/AdvReac Type Severity Reaction Status Date / Time No Known Allergies Allergy Verified 09/21/16 17:24 Review of Systems ROS Statement: Those systems with pertinent positive or pertinent negative responses have been documented in the HPI. ROS Other: All systems not noted in ROS Statement are negative. Past Medical History Past Medical History: Cancer, Chest Pain / Angina, Deep Vein Thrombosis (DVT), Hyperlipidemia, Hypertension, Memory Impairment, Pulmonary Embolus (PE), Seizure Disorder, Skin Disorder Additional Past Medical History / Comment(s): brain tumor, oligodendroglioma History of Any Multi-Drug Resistant Organisms: None Reported Additional Past Surgical History / Comment(s): brain sx for tumor removal-2013, lt hand sx, isabela filter, colonoscopy Past Anesthesia/Blood Transfusion Reactions: No Reported Reaction Additional Past Anesthesia/Blood Transfusion Reaction / Comment(s): OCC VERTIGO Past Psychological History: No Psychological Hx Reported Smoking Status: Never smoker - Past Family History Mother Family Medical History: Myocardial Infarction ([place]) Father Additional Family Medical History / Comment(s): HEART PROBLEMS NOT SURE WHAT Brother(s) Family Medical History: Cancer Additional Family Medical History / Comment(s): BRAIN TUMOR. General Exam - General Exam Comments Initial Comments: 56-year-old male. Patient does not appear to be in any acute distress. Limitations: no limitations General appearance: alert, in no apparent distress Head exam: Present: atraumatic, normocephalic, normal inspection Eye exam: Present: normal appearance, PERRL, EOMI. Absent: scleral icterus, conjunctival injection, periorbital swelling ENT exam: Present: normal exam, normal oropharynx, mucous membranes moist Neck exam: Present: normal inspection. Absent: tenderness, meningismus, lymphadenopathy Respiratory exam: Present: normal lung sounds bilaterally. Absent: respiratory distress, wheezes, rales, rhonchi, stridor Cardiovascular Exam: Present: regular rate, normal rhythm, normal heart sounds. Absent: systolic murmur, diastolic murmur, rubs, gallop, clicks GI/Abdominal exam: Present: soft, normal bowel sounds. Absent: distended, tenderness, guarding, rebound, rigid Rectal exam: Present: normal inspection, normal rectal tone, heme (-) stool Extremities exam: Present: normal inspection, full ROM, normal capillary refill. Absent: tenderness, pedal edema, joint swelling, calf tenderness Back exam: Present: normal inspection, full ROM. Absent: tenderness, CVA tenderness (R), CVA tenderness (L), paraspinal tenderness, vertebral tenderness Neurological exam: Present: alert, oriented X3, CN II-XII intact Expanded Patient oriented to: Present: person, place. Absent: time (Patient does not know the month or day.) Speech: Present: expressive aphasia Cranial nerves: EOM's Intact: Normal Cerebellar function: Finger to Nose: Normal Upper motor neuron: Pronator Drift: Abnormal Left (Patient does have left-sided pronator drift however this does seem to be chronic from reviewing previous charts) Sensory exam: Upper Extremity Light Touch: Normal, Lower Extremity Light Touch: Abnormal Left (Patient reports diminished sensation over the left lower extremity.) Motor strength exam: RUE: 5, LUE: 5, RLE: 5, LLE: 5 Eye Response: (4) open spontaneously Motor Response: (6) obeys commands Verbal Response: (4) confused conversation [place] Total: 14 Psychiatric exam: Present: normal affect, normal mood Skin exam: Present: warm, dry, intact, normal color. Absent: rash Course Vital Signs 09/21/16 09/21/16 09/21/16 17:09 18:22 19:20 Temperature 96.9 F L 98.1 F Pulse Rate 63 60 70 Respiratory 18 18 16 Rate Blood Pressure 153/85 159/83 140/79 O2 Sat by Pulse 96 99 99 Oximetry Medical Decision Making - Medical Decision Making This is a 56-year-old male presenting to the emergency Department chief complaint of left lower extremity weakness for the past month. Apparently patient reports that he lost function of his bowel and bladder earlier today. He reports that the first time this happened. He does have a history of a brain tumor and chronic left-sided weakness afterwards. He denies any specific back pain. According to EMS report patient's home caregiver states that he is not able to take care of himself anymore and that the patient needs to be admitted, apparently he has any thing else in several days. Labwork was reviewed and shows no significant acute process. Rectal exam was performed and has normal sphincter tone. Patient did appear to be incontinent his stools after removing his clothes. Patient does have chronic left-sided weakness. CT brain does show evidence of the focal mass, but no acute intracranial abnormality. Chest x-ray and lumbar spines are also completed and negative for any acute process. I discussed this case with Dr. Adams. He also examined the patient. At this time patient appears medically stable, will continue neurochecks every 4 hours. Patient will be admitted for hopeful continuous care placement. - Lab Data Result diagrams: 09/21/16 17:47 09/21/16 17:47 Lab Results 09/21/16 09/21/16 09/21/16 Range/Units 17:47 17:47 17:47 WBC 6.5 (3.8-10.6) k/uL RBC 4.88 (4.30-5.90) m/uL Hgb 15.9 (13.0-17.5) gm/dL Hct 45.5 (39.0-53.0) % MCV 93.2 (80.0-100.0) fL MCH 32.6 (25.0-35.0) pg MCHC 35.0 (31.0-37.0) g/dL RDW 14.0 (11.5-15.5) % Plt Count 191 (150-450) k/uL Neutrophils % 79 % Lymphocytes % 12 % Monocytes % 7 % Eosinophils % 0 % Basophils % 0 % Neutrophils # 5.1 (1.3-7.7) k/uL Lymphocytes # 0.8 L (1.0-4.8) k/uL Monocytes # 0.5 (0-1.0) k/uL Eosinophils # 0.0 (0-0.7) k/uL Basophils # 0.0 (0-0.2) k/uL PT (9.0-12.0) sec INR (<1.2) APTT (22.0-30.0) sec Sodium 146 H (137-145) mmol/L Potassium 3.2 L (3.5-5.1) mmol/L Chloride 100 (98-107) mmol/L Carbon Dioxide 33 H (22-30) mmol/L Anion Gap 13 mmol/L BUN 27 H (9-20) mg/dL Creatinine 0.92 (0.66-1.25) mg/dL Est GFR (MDRD) Af Amer >60 (>60 ml/min/1.73 sqM) Est GFR (MDRD) Non-Af >60 (>60 ml/min/1.73 sqM) Glucose 92 (74-99) mg/dL Calcium 10.1 (8.4-10.2) mg/dL Magnesium 2.1 (1.6-2.3) mg/dL Total Bilirubin 0.6 (0.2-1.3) mg/dL AST 26 (17-59) U/L ALT 41 (21-72) U/L Alkaline Phosphatase 62 (38-126) U/L Total Creatine Kinase 41 L (55-170) U/L CK-MB (CK-2) 1.3 (0.0-2.4) ng/mL CK-MB (CK-2) Rel Index 3.2 Troponin I <0.012 (0.000-0.034) ng/mL Total Protein 7.9 (6.3-8.2) g/dL Albumin 5.0 (3.5-5.0) g/dL Stool Occult Blood (Negative) 09/21/16 09/21/16 Range/Units 17:47 17:47 WBC (3.8-10.6) k/uL RBC (4.30-5.90) m/uL Hgb (13.0-17.5) gm/dL Hct (39.0-53.0) % MCV (80.0-100.0) fL MCH (25.0-35.0) pg MCHC (31.0-37.0) g/dL RDW (11.5-15.5) % Plt Count (150-450) k/uL Neutrophils % % Lymphocytes % % Monocytes % % Eosinophils % % Basophils % % Neutrophils # (1.3-7.7) k/uL Lymphocytes # (1.0-4.8) k/uL Monocytes # (0-1.0) k/uL Eosinophils # (0-0.7) k/uL Basophils # (0-0.2) k/uL PT 10.1 (9.0-12.0) sec INR 1.0 (<1.2) APTT 20.0 L (22.0-30.0) sec Sodium (137-145) mmol/L Potassium (3.5-5.1) mmol/L Chloride (98-107) mmol/L Carbon Dioxide (22-30) mmol/L Anion Gap mmol/L BUN (9-20) mg/dL Creatinine (0.66-1.25) mg/dL Est GFR (MDRD) Af Amer (>60 ml/min/1.73 sqM) Est GFR (MDRD) Non-Af (>60 ml/min/1.73 sqM) Glucose (74-99) mg/dL Calcium (8.4-10.2) mg/dL Magnesium (1.6-2.3) mg/dL Total Bilirubin (0.2-1.3) mg/dL AST (17-59) U/L ALT (21-72) U/L Alkaline Phosphatase (38-126) U/L Total Creatine Kinase (55-170) U/L CK-MB (CK-2) (0.0-2.4) ng/mL CK-MB (CK-2) Rel Index Troponin I (0.000-0.034) ng/mL Total Protein (6.3-8.2) g/dL Albumin (3.5-5.0) g/dL Stool Occult Blood Negative (Negative) - Radiology Data Radiology results: report reviewed Encephalomalacia in the right hemisphere as above a calcified right posterior frontal lobe calcified mixed density mass that is unchanged compared to old exam. No acute intracranial abnormality. Chest x-ray was reviewed and shows no active cardiopulmonary disease. No previous changes. Mild spondylitic changes. No fracture. No change compared on exam. Disposition Clinical Impression: Impaired mobility and ADLs, Brain tumor, Paresthesia of left lower extremity, Generalized weakness Disposition: ADMITTED IP TO THIS HOSP Condition: Stable Referrals: Wili Villarreal DO [Primary Care Provider] - 1-2 days Time of Disposition: 19:05
[2016-09-21 18:04] LABS: Basophils % (A) 0 %; CH 32.7; CHCM 35.3; Eosinophils % (A) 0 %; HCT 45.5 % (39.0-53.0); HDW 3.19; HGB 15.9 gm/dL (13.0-17.5); Luc # (Auto) 0.09; Luc % (Auto) 1; Lymphocytes # (A) 0.8 k/uL (1.0-4.8); Lymphocytes % (A) 12 %; MCH 32.6 pg (25.0-35.0); MCV 93.2 fL (80.0-100.0); Mean Platelet Volume 8.4; Monocytes # (A) 0.5 k/uL (0-1.0); Monocytes % (A) 7 %; Neutrophils # (A) 5.1 k/uL (1.3-7.7); Neutrophils % (A) 79 %; RBC 4.88 m/uL (4.30-5.90); WBC 6.5 k/uL (3.8-10.6); WBC (Perox) 6.29
[2016-09-21 18:10] LABS: ALT 41 U/L (21-72); AST 26 U/L (17-59); Alkaline Phosphatase 62 U/L (38-126); Anion Gap 13 mmol/L; Blood Urea Nitrogen 27 mg/dL (9-20); Calcium 10.1 mg/dL (8.4-10.2); Carbon Dioxide 33 mmol/L (22-30); Chloride 100 mmol/L (98-107); Glucose 92 mg/dL (74-99); Magnesium 2.1 mg/dL (1.6-2.3); Non-African American GFR(MDRD) >60 (>60 ml/min/1.73 sqM); Potassium 3.2 mmol/L (3.5-5.1); Sodium 146 mmol/L (137-145); Total Bilirubin 0.6 mg/dL (0.2-1.3); Total Protein 7.9 g/dL (6.3-8.2)
[2016-09-21 18:17] LABS: Prothrombin Time 10.1 sec (9.0-12.0)
[2016-09-21 18:20] LABS: Creatine Kinase 41 U/L (55-170)
--- NOTE | 2016-09-21 18:28 | XR ---
EXAMINATION TYPE: XR chest 2V DATE OF EXAM: 09/21/2016 COMPARISON: 08/14/2016 HISTORY: Weakness TECHNIQUE: Frontal and lateral views of the chest are obtained. FINDINGS: There is no heart failure nor confluent pneumonic infiltrate. Costophrenic angles are cristian r. There are chest leads. Bony thorax is intact. IMPRESSION: No active cardiopulmonary disease. No change.
--- NOTE | 2016-09-21 18:32 | CT ---
EXAMINATION TYPE: CT brain wo con DATE OF EXAM: 09/21/2016 COMPARISON: 08/14/2016 HISTORY: Patient complains of vertigo. CT DLP: 839.5 mGycm Automated exposure control for dose reduction was used. FINDINGS: There is large right parietal craniotomy defect. There is tran-white matter hypodensity involving a l arge area of the right posterior frontal lobe and right parietal lobe. There is a partly calcified 5 cm mixed density mass in the right posterior frontal lobe. There is combined calcification and fluid density. There is no midline shift. There is no mass effect. Calvarium is intact. There is no evidence of intracranial hemorrhage. IMPRESSION: ENCEPHALOMALACIA IN THE RIGHT HEMISPHERE ABOVE WITH CALCIFIED RIGHT POSTERIOR FRONTAL LOBE CALCIFI ED MIXED DENSITY MASS THAT IS UNCHANGED COMPARED TO OLD EXAM. NO ACUTE INTRACRANIAL ABNORMALITY.
[2016-09-21 18:34] LABS: Creatine Kinase MB 1.3 ng/mL (0.0-2.4); Troponin I <0.012 ng/mL (0.000-0.034)
--- NOTE | 2016-09-21 18:34 | XR ---
EXAMINATION TYPE: XR lumbar spine 2 or 3V DATE OF EXAM: 09/21/2016 COMPARISON: 01/04/2016 HISTORY: Back pain TECHNIQUE: 3 views FINDINGS: Vertebra have normal alignment. There is no compression fracture. Posterior elements are in tact. Inferior vena cava filter is noted. There is spurring of the endplates. IMPRESSION: Mild spondylotic changes. No fracture. No change compared to old exam.
[2016-09-21] MEDS ORDERED: IBUPROFEN 400 MG TAB PO PRN (19:14)
[2016-09-21] MEDS ORDERED: ONDANSETRON 4 MG/2 ML VIAL IVP PRN (19:14)
[2016-09-21] MEDS ORDERED: ACETAMINOPHEN TAB 325 MG TAB PO PRN (19:14)
[2016-09-21] MEDS ORDERED: LORazepam 2 MG/ML SYRINGE IV PRN (19:14)
[2016-09-21] MEDS ORDERED: NALOXONE 0.4 MG/ML 1 ML VIAL IV PRN (19:14)
[2016-09-21] MEDS ORDERED: TEMAZEPAM 15 MG CAP PO PRN (19:14)
[2016-09-21] MEDS ORDERED: KETOROLAC 30 MG/ML 1 ML VIAL IVP PRN (19:14)
[2016-09-21] MEDS ORDERED: MORPHINE SULFATE 4 MG/ML SYRINGE IV PRN (19:14)
[2016-09-21] MEDS ORDERED: FYCOMPA 8 MG PO SCH (21:00)
[2016-09-21] MEDS: lamoTRIgine 100 MG TAB PO SCH (21:48)
[2016-09-21] MEDS: DEXAMETHASONE 4 MG TAB PO SCH (21:48)
[2016-09-21 22:00] VITALS: BMI 30.2
[2016-09-21 22:09] LABS: Appearance,Urine Clear (Clear); Bilirubin,Urine Negative (Negative); Glucose,Urine (UA) Negative (Negative); Ketones,Urine Negative (Negative); Leukocyte Esterase,Urine Negative (Negative); Nitrite,Urine Negative (Negative); PH, Urine 5.5 (5.0-8.0); Protein,Urine Trace (Negative); Specific Gravity,Urine 1.025 (1.001-1.035); UA Billing (MACRO vs. MICRO) CHEM; Urobilinogen,Urine <2.0 mg/dL (<2.0)
[2016-09-21] MEDS: SODIUM CHLORIDE 0.9% 1,000 ML IV SCH (23:14)
[2016-09-22] MEDS: DEXAMETHASONE 4 MG TAB PO SCH ×4 (01:48→19:15)
[2016-09-22] MEDS ORDERED: NON-FORMULARY DRUG (Ubidecarenone [Co Q-10] 100 MG) PO SCH (09:00)
[2016-09-22] MEDS ORDERED: METOPROLOL PO SCH (09:00)
[2016-09-22] MEDS ORDERED: HYDROCHLOROTHIAZIDE PO SCH (09:00)
[2016-09-22] MEDS ORDERED: NON-FORMULARY DRUG (Omega-3 Fatty Acids/Fish Oil [Fish Oil 1,000 Mg Softgel] 1 CAP) PO SCH (09:00)
[2016-09-22] MEDS: ASPIRIN 81 MG PO SCH (09:11)
[2016-09-22] MEDS: SODIUM CHLORIDE 0.9% 1,000 ML IV SCH ×3 (09:11→19:15)
[2016-09-22] MEDS: ATORVASTATIN 80 MG TAB PO SCH (09:12)
[2016-09-22] MEDS: CHLORTHALIDONE 25 MG TAB PO SCH (09:12)
[2016-09-22] MEDS: ATENOLOL 50 MG TAB PO SCH (09:12)
[2016-09-22] MEDS: FENOFIBRATE 160 MG TAB PO SCH (09:12)
[2016-09-22] MEDS: lamoTRIgine 100 MG TAB PO SCH ×2 (09:12→20:05)
[2016-09-22] MEDS: CHOLECALCIFEROL 1,000 UNIT TAB PO SCH (09:12)
[2016-09-22] MEDS: NIACIN TR 250 MG CAPSULE.ER PO SCH (09:13)
--- NOTE | 2016-09-22 11:21 | P.HPIM ---
History of Present Illness This is a 56-year-old male presenting to the emergency Department chief complaint of left sided weakness . Apparently patient reports that he lost function of his bowel and bladder earlier today. He reports that the first time this happened. He does have a history of a brain tumor and chronic left- sided weakness afterwards and on for 2006 and weakness has gotten much worse lately and wanted to go to rehab. Patient had a CAT scan of the head which showed posterior frontal lobe calcified mixed density mass with some encephalomalacia. She is unchanged compared to the previous exam. Patient was started on Decadron. PT and OT was consulted and I'm consulting oncology. Does have history of brain tumor for which patient follows up with Dr. Zaidi Patient reports that he has no other associated symptoms of any chest pain or shortness of breath or headache. He reports that he has diminished sensation over the left lower extremity. Patient denies any recent falls or trauma. He denies any specific back pain. Had seizures in the past for which patient is on antiseizure medications and patient denied any recent seizure episodes. Patient denies any recent fever, chills, shortness of breath, chest pain, back pain, abdominal pain, nausea vomiting, numbness or tingling, dysuria or hematuria, headaches or visual changes, or any other current symptoms Review of Systems REVIEW OF SYSTEMS: CONSTITUTIONAL: No fever, no malaise, no fatigue. HEENT: No recent visual problems or hearing problems. Denied any sore throat. CARDIOVASCULAR: No chest pain, orthopnea, PND, no palpitations, no syncope. PULMONARY: No shortness of breath, no cough, no hemoptysis. GASTROINTESTINAL: No diarrhea, no nausea, no vomiting, no abdominal pain. Normoactive bowel sounds. NEUROLOGICAL: No headaches. HEMATOLOGICAL: Denies any bleeding or petechiae. GENITOURINARY: Denies any burning micturition, frequency, or urgency. MUSCULOSKELETAL/RHEUMATOLOGICAL: Denies any joint pain, swelling, or any muscle pain. ENDOCRINE: Denies any polyuria or polydipsia. The rest of the 14-point review of systems is negative. Past Medical History Past Medical History: Cancer, Chest Pain / Angina, Deep Vein Thrombosis (DVT), Hyperlipidemia, Hypertension, Memory Impairment, Pulmonary Embolus (PE), Seizure Disorder, Skin Disorder Additional Past Medical History / Comment(s): brain tumor, oligodendroglioma History of Any Multi-Drug Resistant Organisms: None Reported Additional Past Surgical History / Comment(s): brain sx for tumor removal-2014, lt hand sx, isabela filter, colonoscopy Past Anesthesia/Blood Transfusion Reactions: No Reported Reaction Additional Past Anesthesia/Blood Transfusion Reaction / Comment(s): OCC VERTIGO Past Psychological History: No Psychological Hx Reported Additional Psychological History / Comment(s): PT LIVES ALONE IN OWN HOME GETS AROUND WITH USE OF CANE.STATED GETS NO OUTSIDE SERVICES. PT IS ON DISABILTY USED TO WORK IN CONSTRUCTION. Smoking Status: Never smoker - Past Family History Mother Family Medical History: Myocardial Infarction ([place]) Father Additional Family Medical History / Comment(s): HEART PROBLEMS NOT SURE WHAT Brother(s) Family Medical History: Cancer Additional Family Medical History / Comment(s): BRAIN TUMOR. Medications and Allergies Home Medications Medication Instructions Recorded Confirmed Type Fycompa 8 mg PO HS 06/01/16 09/21/16 History Atorvastatin [Lipitor] 80 mg PO DAILY 06/28/16 09/21/16 History Cholecalciferol [Vitamin D3] 1,000 unit PO DAILY 06/28/16 09/21/16 History Ubidecarenone [Co Q-10] 100 mg PO DAILY 06/28/16 09/21/16 History lamoTRIgine [Lamotrigine] 200 mg PO BID 06/28/16 09/21/16 History Aspirin EC [Ecotrin Low Dose] 81 mg PO DAILY 09/21/16 09/21/16 History Atenolol/Chlorthalidone 1 tab PO DAILY 09/21/16 09/21/16 History [Atenolol-Chlorthalidone 50-25] Dexamethasone 4 mg PO Q6H 09/21/16 09/21/16 History Fenofibrate [Lofibra] 160 mg PO DAILY 09/21/16 09/21/16 History Metoprolol/Hydrochlorothiazide 1 tab PO DAILY 09/21/16 09/21/16 History [Lopressor Hct 50-25 mg Tab] Multivitamins, Thera [Multivitamin 1 tab PO DAILY 09/21/16 09/21/16 History (formulary)] Niacin 250 mg PO DAILY 09/21/16 09/21/16 History [place]-3 Fatty Acids/Fish Oil [Fish 1 cap PO DAILY 09/21/16 09/21/16 History Oil 1,000 mg Softgel] Ondansetron [Zofran] 4 mg PO Q6H PRN 09/21/16 09/21/16 History levETIRAcetam [Keppra] 750 mg PO BID 09/21/16 09/21/16 History Allergies Allergy/AdvReac Type Severity Reaction Status Date / Time No Known Allergies Allergy Verified 09/21/16 17:24 Physical Exam Vitals: Vital Signs Temp Pulse Pulse Resp BP BP Pulse Ox 09/22/16 07:00 97.3 F L 63 18 142/85 97 09/22/16 00:00 16 09/21/16 22:56 16 09/21/16 22:00 97.1 F L 58 L 16 187/80 98 09/21/16 20:12 67 16 138/70 98 09/21/16 19:20 98.1 F 70 16 140/79 99 09/21/16 18:22 60 18 159/83 99 09/21/16 17:09 96.9 F L 63 18 153/85 96 Intake and Output 09/21/16 09/22/16 09/22/16 22:59 06:59 14:59 Intake Total 240 800 Balance 240 800 Intake: Intake, IV Titration 400 Amount Sodium Chloride 0.9% 1, 400 000 ml @ 120 mls/hr IV . Q8H20M [facility] Rx#:[id number] Oral 240 400 Other: Voiding Method Urinal Urinal Urinal # Voids 1 Weight 92.986 kg PHYSICAL EXAMINATION: GENERAL: The patient is alert and oriented x3, not in any acute distress. Well developed, well nourished. HEENT: Pupils are round and equally reacting to light. EOMI. No scleral icterus. No conjunctival pallor. Normocephalic, atraumatic. No pharyngeal erythema. No thyromegaly. CARDIOVASCULAR: S1 and S2 present. No murmurs, rubs, or gallops. PULMONARY: Chest is clear to auscultation, no wheezing or crackles. ABDOMEN: Soft, nontender, nondistended, normoactive bowel sounds. No palpable organomegaly. MUSCULOSKELETAL: No joint swelling or deformity. EXTREMITIES: No cyanosis, clubbing, or pedal edema. NEUROLOGICAL: And has 4 x 5 strength in the left upper external T and also 3 x 5 strength in the left lower extremity. Did not do sensory exam SKIN: No rashes. Results CBC & Chem 7: 09/21/16 17:47 09/21/16 17:47 Labs: Abnormal Lab Results - Last 24 Hours (Table) 09/21/16 09/21/16 09/21/16 Range/Units 17:47 17:47 17:47 Lymphocytes # 0.8 L (1.0-4.8) k/uL APTT (22.0-30.0) sec Sodium 146 H (137-145) mmol/L Potassium 3.2 L (3.5-5.1) mmol/L Carbon Dioxide 33 H (22-30) mmol/L BUN 27 H (9-20) mg/dL Total Creatine Kinase 41 L (55-170) U/L Urine Protein (Negative) 09/21/16 09/21/16 Range/Units 17:47 21:30 Lymphocytes # (1.0-4.8) k/uL APTT 20.0 L (22.0-30.0) sec Sodium (137-145) mmol/L Potassium (3.5-5.1) mmol/L Carbon Dioxide (22-30) mmol/L BUN (9-20) mg/dL Total Creatine Kinase (55-170) U/L Urine Protein Trace H (Negative) Thrombosis Risk Factor Assmnt - Choose All That Apply Any of the Below Risk Factors Present?: Yes Each Factor Represents 1 point: Age 41-60 years, Obesity (BMI >25) Other congenital or acquired thrombophilia - If yes, enter type in comment: No Thrombosis Risk Factor Assessment Total Risk Factor Score: 2 Thrombosis Risk Factor Assessment Level: Low Risk Assessment and Plan Plan: Assessment #1 worsening weakness in the left side of the body: Secondary to the tumor in the right side of the pain in the frontal lobe. Patient symptoms has been worsening for last few days because of which patient was started on Decadron. Oncology will be consulted. 2 history of brain tumor with history of seizures in the past: Patient will be continued on antiseizure medications. 3.History of DVT in the past. She is presently not on anti-coagulation at this time patient will be on DVT prophylaxis with subcutaneous heparin. #4 hyperlipidemia 5 hypertension
[2016-09-22] MEDS: MULTIVITAMINS, THERA 1 EACH TAB PO SCH (12:53)
[2016-09-22] MEDS ORDERED: Potassium Replacement Protocol 1 EACH MISC MISCELLANE PRN (13:24)
[2016-09-22] MEDS: POTASSIUM CHLORIDE ER 20 MEQ TAB.ER PO SCH ×2 (15:04→15:56)
[2016-09-22] MEDS: HEPARIN SODIUM,PORCINE 5,000 UNIT/ML 1 ML VIAL SQ SCH (15:56)
[2016-09-22] MEDS ORDERED: POTASSIUM CHLORIDE ER 20 MEQ TAB.ER PO STA (18:22)
--- NOTE | 2016-09-22 19:27 | P.CONS ---
History of Present Illness - Reason for Consult Consult date: 09/22/16 astrocytoma Requesting physician: Mimi Gómez - Chief Complaint incontinence, weakness - History of Present Illness Mr. Duran is a very pleasant male pt of Dr. Gonzales who was diagnosed with Oligodendroglioma in 2007, had subtotal resection by Dr. Jace Espinal at [facility], offered adjuvant radiation therapy which he declined, he was treated with oral Temodar X 6 months. He did well until 2011 when he was fount to have progression, he was re-started on Temodar and again declined radiation therapy, pt had been experiencing seizures, he was managed by Dr. Blum. 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 Wen, this was done concurrently with Temodar, completed concurrent radiation/ chemotherapy early 2014, MRI showed improvement, went on maintenance temodar, Feb 2015 MRI showed improvement, 11/2015 MRI stable, Feb 2016 pt c/o increased headaches and falling, MRI of head showed disease progression. 03/31/16 he started on Avastin, 06/22/16 MRI head stable disease, 07/15/16 MRI head negative for any changes, 09/02/16, stable and his CT head from this admit does not indicate any disease progression. Pt states that over the last few weeks he has been feeling progressively weaker , more tired and ultimately he fell. He denied fevers, sore throat, ear pain or fullness, nausea, vomiting, he admitted to incontinence of stool and urine but that is no longer a problem after being her at the hospital, he states feeling a little stronger today, he is tolerating oral intake. Review of Systems ROS unobtainable: due to mental status All systems: negative Constitutional: Reports as per HPI Past Medical History Past Medical History: Cancer, Chest Pain / Angina, Deep Vein Thrombosis (DVT), Hyperlipidemia, Hypertension, Memory Impairment, Pulmonary Embolus (PE), Seizure Disorder, Skin Disorder Additional Past Medical History / Comment(s): brain tumor, oligodendroglioma History of Any Multi-Drug Resistant Organisms: None Reported Additional Past Surgical History / Comment(s): brain sx for tumor removal-2013, lt hand sx, isabela filter, colonoscopy Past Anesthesia/Blood Transfusion Reactions: No Reported Reaction Additional Past Anesthesia/Blood Transfusion Reaction / Comm: OCC VERTIGO Past Psychological History: No Psychological Hx Reported Additional Psychological History / Comment(s): PT LIVES ALONE IN OWN HOME GETS AROUND WITH USE OF CANE.STATED GETS NO OUTSIDE SERVICES. PT IS ON DISABILTY USED TO WORK IN CONSTRUCTION. Smoking Status: Never smoker - Past Family History Mother Family Medical History: Myocardial Infarction ([place]) Father Additional Family Medical History / Comment(s): HEART PROBLEMS NOT SURE WHAT Brother(s) Family Medical History: Cancer Additional Family Medical History / Comment(s): BRAIN TUMOR. Medications and Allergies Home Medications Medication Instructions Recorded Confirmed Type Fycompa 8 mg PO HS 06/01/16 09/21/16 History Atorvastatin [Lipitor] 80 mg PO DAILY 06/28/16 09/21/16 History Cholecalciferol [Vitamin D3] 1,000 unit PO DAILY 06/28/16 09/21/16 History Ubidecarenone [Co Q-10] 100 mg PO DAILY 06/28/16 09/21/16 History lamoTRIgine [Lamotrigine] 200 mg PO BID 06/28/16 09/21/16 History Aspirin EC [Ecotrin Low Dose] 81 mg PO DAILY 09/21/16 09/21/16 History Atenolol/Chlorthalidone 1 tab PO DAILY 09/21/16 09/21/16 History [Atenolol-Chlorthalidone 50-25] Dexamethasone 4 mg PO Q6H 09/21/16 09/21/16 History Fenofibrate [Lofibra] 160 mg PO DAILY 09/21/16 09/21/16 History Metoprolol/Hydrochlorothiazide 1 tab PO DAILY 09/21/16 09/21/16 History [Lopressor Hct 50-25 mg Tab] Multivitamins, Thera [Multivitamin 1 tab PO DAILY 09/21/16 09/21/16 History (formulary)] Niacin 250 mg PO DAILY 09/21/16 09/21/16 History [place]-3 Fatty Acids/Fish Oil [Fish 1 cap PO DAILY 09/21/16 09/21/16 History Oil 1,000 mg Softgel] Ondansetron [Zofran] 4 mg PO Q6H PRN 09/21/16 09/21/16 History levETIRAcetam [Keppra] 750 mg PO BID 09/21/16 09/21/16 History Allergies Allergy/AdvReac Type Severity Reaction Status Date / Time No Known Allergies Allergy Verified 09/21/16 17:24 Physical Exam Vitals: Vital Signs Temp Pulse Pulse Resp BP BP Pulse Ox 09/22/16 15:00 97.8 F 63 18 132/59 97 09/22/16 07:00 97.3 F L 63 18 142/85 97 09/22/16 00:00 16 09/21/16 22:56 16 09/21/16 22:00 97.1 F L 58 L 16 187/80 98 09/21/16 20:12 67 16 138/70 98 09/21/16 19:20 98.1 F 70 16 140/79 99 Intake and Output 09/22/16 09/22/16 09/22/16 06:59 14:59 22:59 Intake Total 800 Output Total 600 Balance 800 -600 Intake: Intake, IV Titration 400 Amount Sodium Chloride 0.9% 1, 400 000 ml @ 120 mls/hr IV . Q8H20M [facility] Rx#:[id number] Oral 400 Output: Urine 600 Other: Voiding Method Urinal Urinal Urinal # Voids 1 - Constitutional General appearance: average body habitus, cooperative, no acute distress - EENT Eyes: anicteric sclerae, EOMI, PERRLA, normal appearance ENT: hearing grossly normal, normal oropharynx - Neck Neck: no lymphadenopathy - Respiratory Respiratory: bilateral: CTA - Cardiovascular Rhythm: regular Heart sounds: normal: S1, S2 leg Peripheral Edema: bilateral: None - Gastrointestinal General gastrointestinal: no absent bowel sounds, no decreased bowel sounds, no distended, no hepatomegaly, no hyperactive bowel sounds, normal bowel sounds, no organomegaly, no rigid, no scaphoid, soft, no splenomegaly, no tenderness, no umbilical hernia, no ventral hernia - Integumentary Integumentary: normal - Neurologic Mild left sided weakness in upper and lower extremities, pt had soft touch sensation intact in the groin and perineal area - Musculoskeletal Musculoskeletal: left sided weakness - Psychiatric Psychiatric: A&O x's 3, appropriate affect, intact judgment & insight Results CBC & Chem 7: 09/21/16 17:47 09/22/16 17:09 Labs: Abnormal Lab Results - Last 24 Hours (Table) 09/21/16 Range/Units 21:30 Urine Protein Trace H (Negative) Comments: LS xray report reviewed Chest x-ray: report reviewed CT Scan - head: report reviewed Assessment and Plan (1) Generalized weakness Narrative/Plan: Likely related to dehydration, pt states doing better today, confirmed improvement with nursing, he has not been incontinent. PT/OT ordered. Status: Acute (2) Oligodendroglioma Narrative/Plan: Pt is currently on avastin and is due for treatment this week. Pt does want to do rehab. If pt is going to go to rehab for a few weeks then his treatment can be delayed until he has recovered enough to [facility]. If pt is going to be placed in ECF snf then we will need to talk with pt and family as treatment cannot be given to clients of ECF's. Will speak to Social Work to see what plan for pt is. Status: Chronic
[2016-09-23] MEDS: HEPARIN SODIUM,PORCINE 5,000 UNIT/ML 1 ML VIAL SQ SCH ×2 (00:59→08:55)
[2016-09-23] MEDS: DEXAMETHASONE 4 MG TAB PO SCH ×3 (00:59→16:10)
[2016-09-23 07:32] LABS: CH 32.8; CHCM 35.2; HCT 39.1 % (39.0-53.0); HDW 3.15; HGB 13.7 gm/dL (13.0-17.5); MCHC 35.1 g/dL (31.0-37.0); MCV 93.8 fL (80.0-100.0); Mean Platelet Volume 7.7; RBC 4.17 m/uL (4.30-5.90); RDW 13.8 % (11.5-15.5)
[2016-09-23 07:58] LABS: Anion Gap 10 mmol/L; Blood Urea Nitrogen 15 mg/dL (9-20); Calcium 9.1 mg/dL (8.4-10.2); Carbon Dioxide 29 mmol/L (22-30); Chloride 104 mmol/L (98-107); Glucose 120 mg/dL (74-99); Non-African American GFR(MDRD) >60 (>60 ml/min/1.73 sqM); Potassium 3.7 mmol/L (3.5-5.1); Sodium 143 mmol/L (137-145)
[2016-09-23 08:19] VITALS: RESP 18
[2016-09-23] MEDS: SODIUM CHLORIDE 0.9% 1,000 ML IV SCH (08:53)
[2016-09-23] MEDS: ASPIRIN 81 MG PO SCH (08:54)
[2016-09-23] MEDS: lamoTRIgine 100 MG TAB PO SCH (08:55)
[2016-09-23] MEDS: CHOLECALCIFEROL 1,000 UNIT TAB PO SCH (08:55)
[2016-09-23] MEDS: ATORVASTATIN 80 MG TAB PO SCH (08:56)
[2016-09-23] MEDS: NIACIN TR 250 MG CAPSULE.ER PO SCH (08:56)
[2016-09-23] MEDS: ATENOLOL 50 MG TAB PO SCH (08:56)
[2016-09-23] MEDS: CHLORTHALIDONE 25 MG TAB PO SCH (08:56)
[2016-09-23] MEDS: FENOFIBRATE 160 MG TAB PO SCH (08:56)
[2016-09-23] MEDS: MULTIVITAMINS, THERA 1 EACH TAB PO SCH (08:57)
[2016-09-23 15:17] VITALS: BP 138/69; PULSE 61; TEMP 97.9
--- NOTE | 2016-09-23 15:23 | P.DS ---
Providers Date of admission: 09/21/16 19:12 Attending physician: Mimi Gómez Consults: 09/22/16 10:54 Consult Physician Routine Consulting Provider: Ralph Zaidi Consult Reason/Comments: patient on record Do you want consulting provider notified?: Yes Primary care physician: Wili Villarreal Patient Condition at Discharge: Stable Plan - Discharge Summary New Discharge Prescriptions: Continue Fycompa 8 mg PO HS lamoTRIgine [Lamotrigine] 200 mg PO BID Ubidecarenone [Co Q-10] 100 mg PO DAILY Cholecalciferol [Vitamin D3] 1,000 unit PO DAILY Atorvastatin [Lipitor] 80 mg PO DAILY Ondansetron [Zofran] 4 mg PO Q6H PRN PRN Reason: Nausea [place]-3 Fatty Acids/Fish Oil [Fish Oil 1,000 mg Softgel] 1 cap PO DAILY Multivitamins, Thera [Multivitamin (formulary)] 1 tab PO DAILY Atenolol/Chlorthalidone [Atenolol-Chlorthalidone 50-25] 1 tab PO DAILY Fenofibrate [Lofibra] 160 mg PO DAILY Dexamethasone 4 mg PO Q6H Aspirin EC [Ecotrin Low Dose] 81 mg PO DAILY levETIRAcetam [Keppra] 750 mg PO BID Niacin 250 mg PO DAILY Discontinued Metoprolol/Hydrochlorothiazide [Lopressor Hct 50-25 mg Tab] 1 tab PO DAILY Discharge Medication List Fycompa 8 mg PO HS 06/01/16 [History] Atorvastatin [Lipitor] 80 mg PO DAILY 06/28/16 [History] Cholecalciferol [Vitamin D3] 1,000 unit PO DAILY 06/28/16 [History] Ubidecarenone [Co Q-10] 100 mg PO DAILY 06/28/16 [History] lamoTRIgine [Lamotrigine] 200 mg PO BID 06/28/16 [History] Aspirin EC [Ecotrin Low Dose] 81 mg PO DAILY 09/21/16 [History] Atenolol/Chlorthalidone [Atenolol-Chlorthalidone 50-25] 1 tab PO DAILY 09/21/16 [History] Dexamethasone 4 mg PO Q6H 09/21/16 [History] Fenofibrate [Lofibra] 160 mg PO DAILY 09/21/16 [History] Multivitamins, Thera [Multivitamin (formulary)] 1 tab PO DAILY 09/21/16 [History ] Niacin 250 mg PO DAILY 09/21/16 [History] [place]-3 Fatty Acids/Fish Oil [Fish Oil 1,000 mg Softgel] 1 cap PO DAILY [History] Ondansetron [Zofran] 4 mg PO Q6H PRN 09/21/16 [History] levETIRAcetam [Keppra] 750 mg PO BID 09/21/16 [History] Follow up Appointment(s)/Referral(s): Manuel Boss MD [REFERRING] - 3 Days (While at F) Ralph Zaidi MD [STAFF PHYSICIAN] - 09/30/16 4:30 pm Wili Villarreal DO [Primary Care Provider] - 1 Week (After DC from ECF) Activity/Diet/Wound Care/Special Instructions: [place] rachel CBC, BMP in 3 days Discharge Disposition: TRANSFER TO SNF/ECF
--- NOTE | 2016-09-23 15:37 | P.DS ---
Providers Date of admission: 09/21/16 19:12 Expected date of discharge: 09/23/16 Attending physician: Mimi Gómez Consults: 09/22/16 10:54 Consult Physician Routine Consulting Provider: Ralph Zaidi Consult Reason/Comments: patient on record Do you want consulting provider notified?: Yes Primary care physician: [facility] Course: Final Diagnoses #1 worsening weakness in the left side of the body: Secondary to the tumor in the right side of the pain in the frontal lobe. Patient symptoms has been worsening for last few days because of which patient was resumed on Decadron. 2 history of brain tumor with history of seizures in the past 3.History of DVT in the past. #4 hyperlipidemia 5 hypertension Hospital course:This is a 56-year-old male presenting to the emergency Department chief complaint of left sided weakness . Apparently patient reports that he lost function of his bowel and bladder earlier today. He reports that the first time this happened. He does have a history of a brain tumor,( Oligodendroglioma in 2007, had subtotal resection ,treated with oral Temodar X 6 months) and chronic left-sided weakness afterwards and on for 2006 and weakness has gotten much worse lately and wanted to go to rehab. CAT scan of the head did not report disease progression ;showed posterior frontal lobe calcified mixed density mass,unchanged compared to the previous exam. Maintained on Decadron. He reports that he has diminished sensation over the left lower extremity. He denies any specific back pain. Had seizures in the past for which patient is on antiseizure medications and patient denied any recent seizure episodes. Evaluated by oncology. PT/OT. Significant clinical improvement. Patient will go to [facility] rehab for a few weeks, oncology treatment will be delayed until after patient recovers and returns to intermediate. The impression and plan of care has been dictated as directed as a scribe. : I performed a H&P examination of this patient and discussed the same with the dictator. I agree with the dictator's note. Any additional findings/opinions/ etc. will be noted. Patient Condition at Discharge: Stable Plan - Discharge Summary New Discharge Prescriptions: Continue Fycompa 8 mg PO HS lamoTRIgine [Lamotrigine] 200 mg PO BID Ubidecarenone [Co Q-10] 100 mg PO DAILY Cholecalciferol [Vitamin D3] 1,000 unit PO DAILY Atorvastatin [Lipitor] 80 mg PO DAILY Ondansetron [Zofran] 4 mg PO Q6H PRN PRN Reason: Nausea [place]-3 Fatty Acids/Fish Oil [Fish Oil 1,000 mg Softgel] 1 cap PO DAILY Multivitamins, Thera [Multivitamin (formulary)] 1 tab PO DAILY Atenolol/Chlorthalidone [Atenolol-Chlorthalidone 50-25] 1 tab PO DAILY Fenofibrate [Lofibra] 160 mg PO DAILY Dexamethasone 4 mg PO Q6H Aspirin EC [Ecotrin Low Dose] 81 mg PO DAILY levETIRAcetam [Keppra] 750 mg PO BID Niacin 250 mg PO DAILY Discontinued Metoprolol/Hydrochlorothiazide [Lopressor Hct 50-25 mg Tab] 1 tab PO DAILY Discharge Medication List Fycompa 8 mg PO HS 06/01/16 [History] Atorvastatin [Lipitor] 80 mg PO DAILY 06/28/16 [History] Cholecalciferol [Vitamin D3] 1,000 unit PO DAILY 06/28/16 [History] Ubidecarenone [Co Q-10] 100 mg PO DAILY 06/28/16 [History] lamoTRIgine [Lamotrigine] 200 mg PO BID 06/28/16 [History] Aspirin EC [Ecotrin Low Dose] 81 mg PO DAILY 09/21/16 [History] Atenolol/Chlorthalidone [Atenolol-Chlorthalidone 50-25] 1 tab PO DAILY 09/21/16 [History] Dexamethasone 4 mg PO Q6H 09/21/16 [History] Fenofibrate [Lofibra] 160 mg PO DAILY 09/21/16 [History] Multivitamins, Thera [Multivitamin (formulary)] 1 tab PO DAILY 09/21/16 [History ] Niacin 250 mg PO DAILY 09/21/16 [History] [place]-3 Fatty Acids/Fish Oil [Fish Oil 1,000 mg Softgel] 1 cap PO DAILY [History] Ondansetron [Zofran] 4 mg PO Q6H PRN 09/21/16 [History] levETIRAcetam [Keppra] 750 mg PO BID 09/21/16 [History] Follow up Appointment(s)/Referral(s): Manuel Boss MD [REFERRING] - 3 Days (While at ECF) Ralph Zaidi MD [STAFF PHYSICIAN] - 09/30/16 4:30 pm Wili Villarreal DO [Primary Care Provider] - 1 Week (After DC from ECF) Activity/Diet/Wound Care/Special Instructions: Mirtha MONTES, BMP in 3 days Discharge Disposition: TRANSFER TO SNF/ECF
== END 2016-09-23 16:35 | DRG 55 ==
LOC: EC 16:59 → 5MS5E 19:12 → 5ONC 20:47
PROVIDERS: ADMIT Internal Medicine; ATTEND Internal Medicine
DX: C71.9 Malignant neoplasm of brain, unspecified (principal); G93.89 Other specified disorders of brain; E86.0 Dehydration; E78.5 Hyperlipidemia, unspecified; I10 Essential (primary) hypertension; R20.2 Paresthesia of skin; R26.9 Unspecified abnormalities of gait and mobility; G40.409 Other generalized epilepsy and epileptic syndromes, not intractable, without status epilepticus; R15.9 Full incontinence of feces; R53.1 Weakness; Z79.82 Long term (current) use of aspirin; Z79.899 Other long term (current) drug therapy; Z82.49 Family history of ischemic heart disease and other diseases of the circulatory system
CPT/HCPCS: 36415; 70450; 71020; 72100; 80048; 80053; 81003; 82272; 82550; 82553; 83735; 84132; 84484; 85025; 85027; 85610; 85730; 93005; 96360; 96361; 99285